=== PATIENT | female | born 1940 | race Caucasian/White ===

== ENCOUNTER 2017-04-13 09:57 | Day surgery (SDC) | payer MEDICARE, SELFPAY ==
[2017-04-13 10:09] VITALS: BP 149/88; BP 153/71; BP 186/76; PULSE 74; PULSE 84; RESP 18; RESP 20; TEMP 36.4; O2SAT 95
--- NOTE | 2017-04-13 10:36 | HMH.PMPROC ---
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 She had a previous lumbar epidural steroid injection in February. She had 75% relief in her pain symptoms. Her pain is started to return. We will do repeat lumbar epidural steroid injection today. Procedure Details:: Informed consent was obtained and the risk and benefits of the procedure was explained to the patient. The patient was taken to the procedure room. She was placed prone on the procedure table. She was prepped and draped in sterile fashion. C-arm fluoroscopy was used to view the lumbar spine. Skin and subcutaneous tissues were anesthetized using lidocaine. I placed an 18-gauge epidural needle and advanced into the L5-S1 interspace using fluoroscopic guidance and [id number] to air. After confirmation of needle placement in the epidural space with dye I injected 2 mL of lidocaine 1.5% with Depo-Medrol 80 mg. Patient tolerated the procedure well with no complications. Plan and Disposition:: We will follow-up with her in 2 weeks. We will reevaluate her symptoms at that time.
--- NOTE | 2017-04-13 10:40 | P.PCN_ITS ---
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 She had a previous lumbar epidural steroid injection in February. She had 75% relief in her pain symptoms. Her pain is started to return. We will do repeat lumbar epidural steroid injection today. Procedure Details:: Informed consent was obtained and the risk and benefits of the procedure was explained to the patient. The patient was taken to the procedure room. She was placed prone on the procedure table. She was prepped and draped in sterile fashion. C-arm fluoroscopy was used to view the lumbar spine. Skin and subcutaneous tissues were anesthetized using lidocaine. I placed an 18-gauge epidural needle and advanced into the L5-S1 interspace using fluoroscopic guidance and [id number] to air. After confirmation of needle placement in the epidural space with dye I injected 2 mL of lidocaine 1.5% with Depo- Medrol 80 mg. Patient tolerated the procedure well with no complications. Plan and Disposition:: We will follow-up with her in 2 weeks. We will reevaluate her symptoms at that time.
[2017-04-13 11:51] VITALS: BP 150/81; PULSE 76; RESP 18; O2SAT 98
== END 2017-04-13 11:45 | disposition home or self-care (01) ==
LOC: SC.PAINP 10:00
PROVIDERS: Family Provider Internal Medicine; PCP Internal Medicine; Visit Provider Anesthesiology
DX: M51.16 Intervertebral disc disorders with radiculopathy, lumbar region (principal)
CPT/HCPCS: 62322; J1040; Q9966

== ENCOUNTER → 2017-05-29 14:33 | Outpatient (POV) | payer MEDICARE, SELFPAY ==
[2017-05-29 15:15] VITALS: BP 174/63; PULSE 80; RESP 18; TEMP 36.6; O2SAT 96; BMI 31.5
--- NOTE | 2017-05-29 15:46 | HMH.PAINSOAP ---
[facility] Pain Management SOAP Note Subjective:: Patient a pleasant 77-year-old white female who presents today after lumbar epidural steroid injection. Patient states she has had 80% relief since the injection 2 months ago. Patient is taking Aleve once in a while to help with some inflammation. Patient is trying to be more active and functional. Patient states that when she does have pain it is dull and achy and radiates bilaterally to both hips and legs. patient has had a previous epidural with good relief as well. We discussed moving on for a third epidural or if she wanted to wait. She states she would like to wait for a little while given the efficacy of this current injection. Patient has done physical therapy in the past. We discussed home stretching regimen. ROS General: no recent weight change, no fever, no sleep disturbances Respiratory: no cough, no shortness of air, no recurring pulmonary infections Cardiovascular/Peripheral Vascular: No chest pain, No palpitations, no edema, no shortness of breath. Gastrointestinal: no incontinence, normal bowel movements reported Genitourinary: no incontinence Musculoskeletal: Low back pain Psychiatric: normal mood/ affect Neurological: Denies weakness in her extremities, [denies balance issues] Objective:: Physical Exam General: Alert and oriented x3, no acute distress, pleasant and cooperative, [on room air] Lungs: Resps E/U, Symmetrical chest expansion, Musculoskeletal: Flexion and extension of lumbar spine somewhat guarded secondary to pain, deep tendon reflexes normal, strength in upper and lower extremities [5/5], normal gait noted Neurological: speech clear, prehemmer equal, no gross sensory deficits Assessment:: Degenerative disc disease of the lumbar spine with lumbar radiculopathy. Plan:: We will plan on a third lumbar epidural steroid injection with the patient's pain begins to return. Patient has been instructed to call the office when she is beginning to feel the pain returned. We discussed home stretching regimen and remaining active. She will call the office when she needs this. This note was dictated using voice recognition software and may contain omissions or errors
--- NOTE | 2017-05-29 15:50 | P.CONS_ITS ---
[facility] Pain Management SOAP Note Subjective:: Patient a pleasant 77-year-old white female who presents today after lumbar epidural steroid injection. Patient states she has had 80% relief since the injection 2 months ago. Patient is taking Aleve once in a while to help with some inflammation. Patient is trying to be more active and functional. Patient states that when she does have pain it is dull and achy and radiates bilaterally to both hips and legs. patient has had a previous epidural with good relief as well. We discussed moving on for a third epidural or if she wanted to wait. She states she would like to wait for a little while given the efficacy of this current injection. Patient has done physical therapy in the past. We discussed home stretching regimen. ROS General: no recent weight change, no fever, no sleep disturbances Respiratory: no cough, no shortness of air, no recurring pulmonary infections Cardiovascular/Peripheral Vascular: No chest pain, No palpitations, no edema, no shortness of breath. Gastrointestinal: no incontinence, normal bowel movements reported Genitourinary: no incontinence Musculoskeletal: Low back pain Psychiatric: normal mood/ affect Neurological: Denies weakness in her extremities, [denies balance issues] Objective:: Physical Exam General: Alert and oriented x3, no acute distress, pleasant and cooperative, [ on room air] Lungs: Resps E/U, Symmetrical chest expansion, Musculoskeletal: Flexion and extension of lumbar spine somewhat guarded secondary to pain, deep tendon reflexes normal, strength in upper and lower extremities [5/5], normal gait noted Neurological: speech clear, air conditioning specialist equal, no gross sensory deficits Assessment:: Degenerative disc disease of the lumbar spine with lumbar radiculopathy. Plan:: We will plan on a third lumbar epidural steroid injection with the patient's pain begins to return. Patient has been instructed to call the office when she is beginning to feel the pain returned. We discussed home stretching regimen and remaining active. She will call the office when she needs this. This note was dictated using voice recognition software and may contain omissions or errors
== END ==
PROVIDERS: Family Provider Internal Medicine; PCP Internal Medicine; Visit Provider Clinical Nurse Specialist Family Health
DX: M54.16 Radiculopathy, lumbar region (principal)
CPT/HCPCS: 99212

== ENCOUNTER → 2017-06-25 15:15 | Outpatient (CLI) | payer MEDICARE, SELFPAY ==
--- NOTE | 2017-06-25 15:19 | XR_ITS ---
XR chest 2V COMPARISON: None HISTORY: Shortness of breath TECHNIQUE: PA and lateral chest FINDINGS: The lung hinton are well expanded and appear clear of infiltrate. The cardiac silhouette and vascularity are normal and is no pleural fluid. There are mild degenerative changes mid thoracic spine. IMPRESSION: Essentially negative chest
== END ==
PROVIDERS: PCP Internal Medicine; Visit Provider Internal Medicine
DX: R06.02 Shortness of breath (principal)
CPT/HCPCS: 71046; 93005

== ENCOUNTER → 2017-07-02 09:52 | Outpatient (CLI) | payer MEDICARE, SELFPAY ==
--- NOTE | 2017-07-02 10:49 | CA_ITS ---
PROCEDURE: 2-D M-mode and color Doppler study INDICATIONS FOR THE TEST: Chest pain COPD Heart Murmur Tobacco Smoking Palpitations Fatigue Syncope EdemaX HypertensionXDiabetes Mellitus Rheumatic Fever SOB DOEXObesityXHyperlipidemia Family History HD Additional History PATIENT INFORMATION HEIGHT: 60 WEIGHT:170 GENDER: Female B/P:140/70 2-D/M-MODE INTERPRETATION: 2-D MEASUREMENTS OBSERVED VALUES IN CMS Right Ventricular Dimension (RVDd) 2.2 Interventricular Septum (Thickness)(IVsd) 1.3 Left Ventricular Internal Dimensions(LVIDd) 4.1 Left Ventricular Posterior Wall (Thickness)(LVPWd) 1.3 Aortic Root 2.8 Aortic Cusp Separation 1.8 Left Atrial Dimensions (LAD) 4.1 2D 1. Left atrium is mildly enlarged, left ventricle is normal size, there is mild concentric left ventricular hypertrophy, visually estimated ejection fraction 55% with no obvious regional wall motion abnormality. 2. The right atrium and right ventricle are normal size and contractility. 3. The aortic valve is minimally thickened and fibrosed. 4. The mitral and tricuspid valve leaflets are minimally thickened. 5. The pulmonic valve is poorly visualized. 6. No significant pericardial effusion noted. DOPPLER INTERROGATION: Doppler interrogation of the aortic, mitral and tricuspid valvular presence of trace aortic, mild mitral and tricuspid regurgitation, calculated right ventricular systolic pressure study millimeters segment consistent with mild pulmonary hypertension, grade 1 diastolic dysfunction seen without tissue Doppler evidence of raised left atrial pressure. CONCLUSION: 1. Mildly enlarged left atrium, normal left ventricular size, mild concentric left ventricular hypertrophy, visually estimated ejection fraction 55% with no obvious regional wall motion abnormality. Grade 1 diastolic dysfunction seen without tissue Doppler evidence of raised left atrial pressure. 2. Mild mitral and tricuspid regurgitation. Calculated right ventricular systolic pressure is 38 mmHg consistent with mild pulmonary hypertension. 3. No significant pericardial effusion noted.
[2017-07-02 12:25] VITALS: PULSE 64; PULSE 67
== END ==
PROVIDERS: Family Provider Internal Medicine; PCP Internal Medicine; Visit Provider Internal Medicine
DX: R06.02 Shortness of breath (principal); I10 Essential (primary) hypertension
CPT/HCPCS: 93306; 94060; 94640

== ENCOUNTER → 2020-04-22 08:51 | Outpatient (CLI) | payer MEDICARE, SELFPAY ==
--- NOTE | 2020-04-22 08:56 | FL_ITS ---
PROCEDURE: FL UPPER GI ESOPHAGUS W/AIR CLINICAL INDICATION: Dysphagia and abdominal pain. COMPARISON: No exams were available for comparison TECHNIQUE: FLUOROSCOPY TIME : 2 minutes and 59 seconds FINDINGS: There are mild tertiary contractions of the esophagus.. No evidence of hiatal hernia or annular constricting lesion. The stomach and duodenum have an unremarkable appearance. No ulcer or mass is apparent. IMPRESSION: 1. Mild esophageal dysmotility 2. Otherwise negative barium swallow and upper Dictated by: Albert Pang MD 04/22/2020 16:56 Albert Pang MD in [place] 04/22/2020 16:56
== END ==
PROVIDERS: PCP Internal Medicine; Visit Provider Internal Medicine
DX: R13.10 Dysphagia, unspecified (principal); R09.89 Other specified symptoms and signs involving the circulatory and respiratory systems; R49.0 Dysphonia; R10.13 Epigastric pain
CPT/HCPCS: 74221; 74246

== ENCOUNTER → 2020-06-01 15:05 | Outpatient (CLI) | payer MEDICARE, SELFPAY ==
--- NOTE | 2020-06-01 15:12 | XR_ITS ---
PROCEDURE: XR LUMBAR SPINE MIN 4V CLINICAL INDICATION: LOW BACK PAIN COMPARISON: No exams were available for comparison FINDINGS: There is mild lumbar scoliosis convex right. There are facet arthritic changes from L3-S1. There is 7 mm anterolisthesis of L3 on L4 with multilevel degenerative disc disease from L1-S1 which is most severe at L3-L4 and L4-S1. There are only 4 lumbar segments. IMPRESSION: Degenerative changes of the lumbar spine as described. Dictated by: Albert Pang MD 06/01/2020 16:03 Albert Pang MD in OV 06/01/2020 16:03
== END ==
PROVIDERS: PCP Internal Medicine; Visit Provider Internal Medicine
DX: M54.5 Low back pain (principal)
CPT/HCPCS: 72110

== ENCOUNTER → 2021-05-17 17:06 | Outpatient (CLI) | payer MEDICARE, SELFPAY ==
[2021-05-17 22:19] LABS: Basophils # 0.1 K/mm3 (0-0.2); Basophils % 1.2 % (0.1-2.0); Eosinophils # 0.8 K/mm3 (0.0-0.4); Eosinophils % 7.9 % (0.1-12.0); Hematocrit 39.9 % (37.0-47.0); Hemoglobin 12.9 g/dL (12.2-16.2); Lymphocytes # 1.6 K/mm3 (0.7-4.5); Lymphocytes % 14.8 % (10-50); Mean Corpuscular HGB Conc 32.3 g/dL (31.8-35.4); Mean Corpuscular Hemoglobin 31.7 pg (27.0-31.2); Mean Corpuscular Volume 98.2 fl (81-99); Mean Platelet Volume 11.6 fl (7.4-10.4); Monocytes # 0.8 K/mm3 (0.1-1.0); Monocytes % 7.1 % (1.7-9.3); Neutrophils # 7.3 K/mm3 (1.8-7.8); Platelet Count 255 K/mm3 (142-424); Red Blood Count 4.06 M/mm3 (4.20-5.40); Red Cell Distribution Width 13.2 % (11.5-17.5); White Blood Count 10.6 K/mm3 (4.8-10.8)
[2021-05-17 22:41] LABS: Alanine Aminotransferase 15 U/L (12-78); Albumin Level 4.3 g/dl (3.5-5.0); Albumin/Globulin Ratio 1.3 (1.1-1.8); Alkaline Phosphatase 97 U/L (38-126); Anion Gap 15.3 mEq/L (5-15); Aspartate Amino Transferase 29 U/L (14-36); Bilirubin,Total 0.5 mg/dl (0.2-1.3); Blood Urea Nitrogen 34 mg/dl (7-17); Calcium 9.2 mg/dl (8.4-10.2); Carbon Dioxide 29 mmol/L (22.0-30.0); Chloride 99 mmol/L (98-107); Chol/HDL Ratio 6.2 (1-3.5); Cholesterol 261 mg/dl (140-200); Estimated Glomerular Filt Rate 40 ml/min (>60); GFR (African American) 48 ML/MIN (>60); Globulin 3.2 g/dL (1.3-3.2); Glucose 88 mg/dl (74-100); HDL Cholesterol 42 mg/dl (40-60); Potassium 4.3 mmoL/L (3.5-5.1); Sodium 139 mmol/L (136-145); Total Protein,Serum 7.5 g/dl (6.3-8.2); Triglycerides 183 mg/dl (30-150); VLDL Cholesterol 37 mg/dL (0-40)
[2021-05-17 22:51] LABS: Direct LDL Cholesterol 180.29 mg/dL (100-129)
== END ==
PROVIDERS: Visit Provider Internal Medicine
DX: I10 Essential (primary) hypertension (principal); E78.5 Hyperlipidemia, unspecified
CPT/HCPCS: 80053; 80061; 84443; 85025

== ENCOUNTER → 2021-11-01 15:25 | Outpatient (CLI) | payer MEDICARE, SELFPAY ==
--- NOTE | 2021-11-01 15:32 | ECG_ITS ---
APPROVED REPORT Exam: Resting ECG HR:80 bpm ECG Measurements Heart Rate 80 AXES PA 146 P 72 QRSd 109 QRS 6 QT 386 T 73 QTc 422 Conclusion SINUS RHYTHM WITH OCCASIONAL VENTRICULAR PREMATURE COMPLEXES LOW QRS VOLTAGE IN PRECORDIAL LEADS [QRS DEFLECTION < 1.0 mV IN CHEST LEADS] BORDERLINE ECG UNCONFIRMED REPORT Electronically signed by : Abundio Spear MD 11/01/2021 21:08:52
[2021-11-01 20:55] LABS: Basophils # 0.1 K/mm3 (0-0.2); Basophils % 0.7 % (0.1-2.0); Eosinophils # 0.2 K/mm3 (0.0-0.4); Eosinophils % 1.3 % (0.1-12.0); Hematocrit 37.8 % (37.0-47.0); Lymphocytes # 2.2 K/mm3 (0.7-4.5); Lymphocytes % 13.9 % (10-50); Mean Corpuscular HGB Conc 34.4 g/dL (31.8-35.4); Mean Corpuscular Hemoglobin 31.7 pg (27.0-31.2); Mean Corpuscular Volume 92.2 fl (81-99); Mean Platelet Volume 10.8 fl (7.4-10.4); Monocytes # 0.9 K/mm3 (0.1-1.0); Neutrophils # 12.1 K/mm3 (1.8-7.8); Platelet Count 298 K/mm3 (142-424); Red Blood Count 4.09 M/mm3 (4.20-5.40); Red Cell Distribution Width 12.8 % (11.5-17.5); White Blood Count 15.4 K/mm3 (4.8-10.8)
[2021-11-01 21:05] LABS: MANUAL DIFFERENTIAL MANUAL DIFFERENTIAL (MANUAL DIFF)
[2021-11-01 21:34] LABS: Alanine Aminotransferase 19 U/L (12-78); Albumin Level 3.9 g/dl (3.5-5.0); Albumin/Globulin Ratio 1.3 (1.1-1.8); Alkaline Phosphatase 148 U/L (38-126); Anion Gap 13.8 mEq/L (5-15); Aspartate Amino Transferase 27 U/L (14-36); Bilirubin,Total 0.2 mg/dl (0.2-1.3); Blood Urea Nitrogen 27 mg/dl (7-17); Calcium 9.1 mg/dl (8.4-10.2); Carbon Dioxide 28 mmol/L (22.0-30.0); Chloride 100 mmol/L (98-107); Chol/HDL Ratio 4.1 (1-3.5); Cholesterol 191 mg/dl (140-200); Estimated Glomerular Filt Rate 43 ml/min (>60); GFR (African American) 52 ML/MIN (>60); Glucose 112 mg/dl (74-100); HDL Cholesterol 47 mg/dl (40-60); Potassium 3.8 mmoL/L (3.5-5.1); Sodium 138 mmol/L (136-145); Total Protein,Serum 6.9 g/dl (6.3-8.2); Triglycerides 160 mg/dl (30-150); VLDL Cholesterol 32 mg/dL (0-40)
[2021-11-01 21:45] LABS: Direct LDL Cholesterol 94.62 mg/dL (100-129)
[2021-11-01 22:04] LABS: Thyroid Stimulating Hormone 0.12 uIU/mL (0.465-4.68)
[2021-11-01 22:26] LABS: Lymphocytes % 32 % (10-50); Monocytes % 1 % (2-9); Neutrophils % 67 % (42-76); Platelet Estimate Normal; Total Cells Counted 100
== END ==
PROVIDERS: PCP Internal Medicine; Visit Provider Internal Medicine
DX: R00.2 Palpitations (principal); I10 Essential (primary) hypertension; E03.9 Hypothyroidism, unspecified; R53.83 Other fatigue; M15.0 Primary generalized (osteo)arthritis
CPT/HCPCS: 80053; 80061; 84443; 85007; 85025; 93005; 93225; 93226

== ENCOUNTER → 2021-11-18 12:15 | Outpatient (CLI) | payer MEDICARE, SELFPAY ==
--- NOTE | 2021-11-18 12:52 | CA_ITS ---
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 [employer]: Viridiana Quevedo, RT(R) Ht: 5 ft 1 in Wt: 159lbs BSA: 1.71 BP: 136/72 mmHg Indications: palpitations, PVC's, Abn EKG, CP,HTN, HLD, JOSHI 2D Dimensions LA Volume 32.80 mL LA Volume Index 19.18 mL/m2 (M/F) 16-34 M-Mode Dimensions RVDd 3.18 cm (0.9-2.6) LA Diam 3.49 cm (1.9-4.0) LVDd 5.04 cm (3.5-5.7) Ao Diam 2.17 cm (2.0-3.7) LVDs 3.72 cm (3.5-5.7) IVSd 0.72 cm (0.6-1.1) PWd 0.80 cm (0.6-1.1) EF (Teich) 51.10% FS 26.20% EDV (Teich) 120.50 mL ESV (Teich) 58.90 mL LV Diastology E Decel Time 183.00 (160-240 msec) E/A Ratio 1.0 MED E' 6.70 (< 7 cm/sec) E'/MED E' Ratio 17.19 (>14) LAT E' 6.90 (<10 cm/sec) E/LAT E' Ratio 16.70 (>14) Mitral Valve MV E Max Tano. 115.00 (40-130 cm/s) MV A Velocity 119.00 (40-130 cm/s) E/A Ratio 0.97 MV Decel. Time 183.00 (160-240 ms) MV PHT 54.00 ms Tricuspid Valve TR P. Velocity 279.00 cm/s RAP Estimate 10.00 mmHg RVSP 41.20 mmHg Left Ventricle Left atrium is mildly enlarged, left ventricle is normal size, mild concentric left ventricular hypertrophy, estimated ejection fraction 55% with no regional wall motion abnormality, grade 1 diastolic dysfunction seen with tissue Doppler evidence of raise left atrial pressure. Right Ventricle Right atrium and right ventricle are mildly enlarged with normal contractility. Aortic Valve Aortic valve is minimally thickened and fibrosed, there is no aortic stenosis or aortic insufficiency. Mitral Valve Mitral valve has mitral calcification which extends to both anterior posterior mitral leaflet, there is no mitral stenosis, there is mild mitral regurgitation. Tricuspid Valve Tricuspid valve grossly normal, there is mild tricuspid regurgitation, calculated right ventricular systolic pressure is 41 mmHg. Pulmonic Valve Pulmonic valve is poorly visualized. Great Vessels Aortic root is normal size. Inferior vena cava is poorly visualized. Pericardium No significant pericardial effusion noted. Conclusion 1. Mild biatrial enlargement, normal left ventricular size, mild concentric left ventricular hypertrophy, estimated ejection fraction 55% with no regional wall motion abnormality, grade 1 diastolic dysfunction seen without tissue Doppler evidence of raise left atrial pressure. 2. Mildly enlarged right ventricle with normal contractility. 3. Mild mitral and tricuspid regurgitation, calculated right ventricular systolic pressure is 41 mmHg. 4. No significant pericardial effusion. 5. Inferior vena cava is poorly visualized. Electronically signed by : Mitch Castro MD 11/18/2021 15:02:48
== END ==
PROVIDERS: PCP Internal Medicine; Visit Provider Internal Medicine
DX: R00.2 Palpitations (principal); I10 Essential (primary) hypertension
CPT/HCPCS: 93306

== ENCOUNTER → 2021-12-14 15:18 | Outpatient (CLI) | payer MEDICARE, SELFPAY ==
--- NOTE | 2021-12-14 15:23 | XR_ITS ---
FINAL REPORT CLINICAL HISTORY: CHEST PAIN,SOB COMPARISON: June 25, 2017 FINDINGS: Two views of the chest were obtained. The heart size and pulmonary vascularity are within normal limits. The mediastinum is normal. No acute pulmonary abnormality is identified. There is no pneumothorax. There are moderate degenerative changes in the thoracic spine. IMPRESSION: No active cardiopulmonary disease. Reviewed, Interpreted and Dictated by Jimmy Mg III, MD Transcribed by Leonarda Macias Authenticated and [facility]
== END ==
PROVIDERS: PCP Internal Medicine; Visit Provider Internal Medicine
DX: R06.02 Shortness of breath (principal); R07.9 Chest pain, unspecified
CPT/HCPCS: 71046

== ENCOUNTER → 2022-02-28 15:04 | Outpatient (CLI) | payer MEDICARE, SELFPAY ==
[2022-02-28 15:34] LABS: Basophils # 0.1 K/mm3 (0-0.2); Basophils % 1.2 % (0.1-2.0); Eosinophils # 0.6 K/mm3 (0.0-0.4); Eosinophils % 6.4 % (0.1-12.0); Hematocrit 40.1 % (37.0-47.0); Hemoglobin 13.1 g/dL (12.2-16.2); Lymphocytes # 1.7 K/mm3 (0.7-4.5); Lymphocytes % 17.3 % (10-50); Mean Corpuscular HGB Conc 32.6 g/dL (31.8-35.4); Mean Corpuscular Hemoglobin 30.7 pg (27.0-31.2); Mean Corpuscular Volume 94.3 fl (81-99); Monocytes # 0.7 K/mm3 (0.1-1.0); Monocytes % 6.7 % (1.7-9.3); Neutrophils # 6.7 K/mm3 (1.8-7.8); Neutrophils % 68.4 % (37.0-80.0); Platelet Count 213 K/mm3 (142-424); Red Blood Count 4.25 M/mm3 (4.20-5.40); White Blood Count 9.8 K/mm3 (4.8-10.8)
[2022-02-28 16:01] LABS: Chloride 97 mmol/L (98-107); Sodium 138 mmol/L (136-145)
[2022-02-28 16:02] LABS: Potassium 3.9 mmoL/L (3.5-5.1)
[2022-02-28 16:04] LABS: Blood Urea Nitrogen 30 mg/dl (7-17); Estimated Glomerular Filt Rate 31 ml/min (>60); GFR (African American) 38 ML/MIN (>60)
[2022-02-28 16:05] LABS: Anion Gap 17.9 mEq/L (5-15); Calcium 9.3 mg/dl (8.4-10.2); Carbon Dioxide 27 mmol/L (22.0-30.0); Glucose 130 mg/dl (74-100)
[2022-02-28 16:35] LABS: Thyroid Stimulating Hormone 2.69 uIU/mL (0.465-4.68)
== END ==
PROVIDERS: PCP Internal Medicine; Visit Provider Internal Medicine
DX: E11.59 Type 2 diabetes mellitus with other circulatory complications (principal); I10 Essential (primary) hypertension; E03.9 Hypothyroidism, unspecified; R79.89 Other specified abnormal findings of blood chemistry
CPT/HCPCS: 80048; 84443; 85025

== ENCOUNTER → 2022-03-29 14:09 | Outpatient (CLI) | payer MEDICARE, SELFPAY ==
--- NOTE | 2022-03-29 14:12 | US_ITS ---
FINAL REPORT TECHNIQUE: Ultrasound images of the kidneys and bladder were obtained. CLINICAL HISTORY: ELEVATED KIDNEY FUNCTION FINDINGS: The right kidney measures 9.7 cm in length. It is normal in echogenicity. There is no hydronephrosis. The left kidney measures 8.5 cm in length. It is normal in echogenicity. There is no hydronephrosis. The spleen is within normal limits. IMPRESSION: No acute process. Reviewed, Interpreted and Dictated by Jimmy Mg III, MD Transcribed by Sofya Denis Authenticated and [facility]
--- NOTE | 2022-03-29 14:12 | US_ITS ---
FINAL REPORT CLINICAL HISTORY: ELEVATED KIDNEY FUNCTION FINDINGS: Limited images of the urinary bladder were obtained. Bladder volume is 49 mL. Postvoid residual is 5 mL. IMPRESSION: No significant postvoid residual. Reviewed, Interpreted and Dictated by Jimmy Mg III, MD Transcribed by Sofya Denis Authenticated and [facility]
== END ==
PROVIDERS: PCP Internal Medicine; Visit Provider Internal Medicine
DX: R94.4 Abnormal results of kidney function studies (principal)
CPT/HCPCS: 76770; 76857

== ENCOUNTER → 2022-04-10 13:45 | Outpatient (CLI) | payer MEDICARE, SELFPAY ==
[2022-04-10 13:53] LABS: Microscopic, Urine URINE MICROSCOPIC (MICROSCOPIC)
[2022-04-10 14:20] LABS: Appearance,Urine CLEAR (Clear); Bilirubin,Urine Negative (Negative); Blood, Urine Negative (Negative); Color,Urine YELLOW (Yellow); Glucose,Urine (UA) Negative (Negative); Ketones,Urine TRACE (Negative); Leukocyte Esterase,Urine TRACE (Negative); Nitrate,Urine Negative (Negative); PH,Urine 6.5 (5.0-8.5); Protein,Urine TRACE (Negative); Specific Gravity, Urine 1.015 (1.005-1.030); Urobilinogen,Urine 0.2 EU/dl (0.2)
[2022-04-10 14:33] LABS: Basophils # 0.1 K/mm3 (0-0.2); Basophils % 0.7 % (0.1-2.0); Eosinophils # 0.5 K/mm3 (0.0-0.4); Eosinophils % 6.5 % (0.1-12.0); Hematocrit 39.9 % (37.0-47.0); Hemoglobin 12.8 g/dL (12.2-16.2); Lymphocytes # 1.7 K/mm3 (0.7-4.5); Lymphocytes % 21.1 % (10-50); Mean Corpuscular HGB Conc 31.9 g/dL (31.8-35.4); Mean Platelet Volume 9.5 fl (7.4-10.4); Monocytes # 0.7 K/mm3 (0.1-1.0); Monocytes % 8.7 % (1.7-9.3); Neutrophils # 5.2 K/mm3 (1.8-7.8); Neutrophils % 62.9 % (37.0-80.0); Platelet Count 207 K/mm3 (142-424); Red Blood Count 4.25 M/mm3 (4.20-5.40); Red Cell Distribution Width 13.4 % (11.5-17.5); White Blood Count 8.2 K/mm3 (4.8-10.8)
[2022-04-10 14:44] LABS: Albumin Level 3.8 g/dl (3.5-5.0); Anion Gap 14.3 mEq/L (5-15); Blood Urea Nitrogen 31 mg/dl (7-17); Calcium 8.4 mg/dl (8.4-10.2); Carbon Dioxide 27 mmol/L (22.0-30.0); Chloride 102 mmol/L (98-107); Estimated Glomerular Filt Rate 27 ml/min (>60); GFR (African American) 33 ML/MIN (>60); Glucose 110 mg/dl (74-100); Phosphorous 3.8 mg/dl (2.5-4.5); Potassium 3.3 mmoL/L (3.5-5.1); Sodium 140 mmol/L (136-145)
[2022-04-10 14:57] LABS: Intact Parathyroid Hormone 144.6 pg/mL (7.5-53.5)
[2022-04-10 14:59] LABS: Creatinine,Urine Random 314 mg/dL (Not Estab.)
[2022-04-10 15:41] LABS: Bacteria,Urine Trace /lpf; WBC,Urine Occasional #/hpf (0-3)
== END ==
PROVIDERS: PCP Internal Medicine; Visit Provider Internal Medicine Nephrology
DX: N18.32 Chronic kidney disease, stage 3b (principal); E55.9 Vitamin D deficiency, unspecified
CPT/HCPCS: 36415; 80069; 81001; 82306; 82570; 83970; 84155; 85025

== ENCOUNTER → 2022-04-13 15:11 | Outpatient (POV) | payer MEDICARE, SELFPAY | PROVIDERS: Visit Provider Internal Medicine Nephrology | DX: Z00.00 Encounter for general adult medical examination without abnormal findings (principal) ==

== ENCOUNTER → 2022-05-08 13:56 | Outpatient (CLI) | payer MEDICARE, SELFPAY ==
[2022-05-08 16:03] LABS: Chloride 108 mmol/L (98-107); Sodium 142 mmol/L (136-145)
[2022-05-08 16:06] LABS: Blood Urea Nitrogen 22 mg/dl (7-17); Estimated Glomerular Filt Rate 43 ml/min (>60); GFR (African American) 52 ML/MIN (>60); Potassium 4.5 mmoL/L (3.5-5.1)
[2022-05-08 16:07] LABS: Anion Gap 9.5 mEq/L (5-15); Calcium 8.5 mg/dl (8.4-10.2); Carbon Dioxide 29 mmol/L (22.0-30.0); Glucose 102 mg/dl (74-100)
== END ==
PROVIDERS: PCP Internal Medicine; Visit Provider Internal Medicine Nephrology
DX: N28.9 Disorder of kidney and ureter, unspecified (principal)
CPT/HCPCS: 36415; 80048

== ENCOUNTER → 2022-05-16 11:22 | Outpatient (CLI) | payer MEDICARE, SELFPAY ==
[2022-05-16 14:11] LABS: Basophils # 0.1 K/mm3 (0-0.2); Basophils % 0.8 % (0.1-2.0); Eosinophils # 0.6 K/mm3 (0.0-0.4); Eosinophils % 6.1 % (0.1-12.0); Hematocrit 36.3 % (37.0-47.0); Hemoglobin 11.8 g/dL (12.2-16.2); Lymphocytes # 2.2 K/mm3 (0.7-4.5); Lymphocytes % 21.6 % (10-50); Mean Corpuscular HGB Conc 32.6 g/dL (31.8-35.4); Mean Corpuscular Hemoglobin 30.5 pg (27.0-31.2); Mean Corpuscular Volume 93.7 fl (81-99); Mean Platelet Volume 11.1 fl (7.4-10.4); Monocytes # 0.8 K/mm3 (0.1-1.0); Monocytes % 7.4 % (1.7-9.3); Neutrophils # 6.7 K/mm3 (1.8-7.8); Neutrophils % 64.2 % (37.0-80.0); Platelet Count 226 K/mm3 (142-424); Red Blood Count 3.88 M/mm3 (4.20-5.40); Red Cell Distribution Width 13.3 % (11.5-17.5); White Blood Count 10.4 K/mm3 (4.8-10.8)
[2022-05-16 17:04] LABS: Alanine Aminotransferase 14 U/L (12-78); Albumin Level 3.8 g/dl (3.5-5.0); Albumin/Globulin Ratio 1.2 (1.1-1.8); Alkaline Phosphatase 98 U/L (38-126); Anion Gap 10.7 mEq/L (5-15); Aspartate Amino Transferase 24 U/L (14-36); Bilirubin,Total 0.5 mg/dl (0.2-1.3); Blood Urea Nitrogen 21 mg/dl (7-17); Calcium 8.4 mg/dl (8.4-10.2); Carbon Dioxide 29 mmol/L (22.0-30.0); Chloride 106 mmol/L (98-107); Chol/HDL Ratio 6.3 (1-3.5); Cholesterol 209 mg/dl (140-200); Estimated Glomerular Filt Rate 43 ml/min (>60); GFR (African American) 52 ML/MIN (>60); Globulin 3.1 g/dL (1.3-3.2); Glucose 76 mg/dl (74-100); HDL Cholesterol 33 mg/dl (40-60); Potassium 3.7 mmoL/L (3.5-5.1); Sodium 142 mmol/L (136-145); Total Protein,Serum 6.9 g/dl (6.3-8.2); Triglycerides 207 mg/dl (30-150); VLDL Cholesterol 41 mg/dL (0-40)
[2022-05-16 17:15] LABS: Direct LDL Cholesterol 127.88 mg/dL (100-129)
[2022-05-16 17:36] LABS: Thyroid Stimulating Hormone 5.38 uIU/mL (0.465-4.68)
== END ==
PROVIDERS: PCP Internal Medicine; Visit Provider Internal Medicine
DX: I10 Essential (primary) hypertension (principal); E03.9 Hypothyroidism, unspecified; E78.5 Hyperlipidemia, unspecified; F41.9 Anxiety disorder, unspecified; M15.0 Primary generalized (osteo)arthritis
CPT/HCPCS: 80053; 80061; 84443; 85025

== ENCOUNTER → 2022-07-10 13:58 | Outpatient (CLI) | payer MEDICARE, SELFPAY ==
[2022-07-10 14:05] LABS: Microscopic, Urine URINE MICROSCOPIC (MICROSCOPIC)
[2022-07-10 14:58] LABS: Hematocrit 38.9 % (37.0-47.0); Hemoglobin 12.3 g/dL (12.2-16.2); Mean Corpuscular HGB Conc 31.7 g/dL (31.8-35.4); Mean Corpuscular Hemoglobin 30.2 pg (27.0-31.2); Mean Corpuscular Volume 95.3 fl (81-99); Platelet Count 199 K/mm3 (142-424); Red Blood Count 4.08 M/mm3 (4.20-5.40); White Blood Count 9.5 K/mm3 (4.8-10.8)
[2022-07-10 15:21] LABS: Albumin Level 3.7 g/dl (3.5-5.0); Anion Gap 12.2 mEq/L (5-15); Blood Urea Nitrogen 20 mg/dl (7-17); Calcium 8.6 mg/dl (8.4-10.2); Carbon Dioxide 25 mmol/L (22.0-30.0); Chloride 105 mmol/L (98-107); Estimated Glomerular Filt Rate 48 ml/min (>60); GFR (African American) 58 ML/MIN (>60); Glucose 97 mg/dl (74-100); Phosphorous 3.7 mg/dl (2.5-4.5); Potassium 4.2 mmoL/L (3.5-5.1); Sodium 138 mmol/L (136-145)
[2022-07-10 15:39] LABS: Appearance,Urine SL CLOUDY (Clear); Bilirubin,Urine Negative (Negative); Blood, Urine TRACE-I (Negative); Color,Urine YELLOW (Yellow); Glucose,Urine (UA) Negative (Negative); Ketones,Urine Negative (Negative); Leukocyte Esterase,Urine 1+ (Negative); Nitrate,Urine Negative (Negative); Protein,Urine TRACE (Negative); Urobilinogen,Urine 0.2 EU/dl (0.2)
[2022-07-10 16:30] LABS: Creatinine,Urine Random 216 mg/dL (Not Estab.)
[2022-07-10 17:30] LABS: RBC,Urine Occasional #/hpf (0-3)
[2022-07-10 17:31] LABS: Squamous Epithelial Cell,Urine 20-50 #/hpf (0-5)
== END ==
PROVIDERS: PCP Internal Medicine; Visit Provider Internal Medicine Nephrology
DX: N28.9 Disorder of kidney and ureter, unspecified (principal)
CPT/HCPCS: 36415; 80069; 81001; 82570; 84155; 85014; 85018; 85048; 85049; 87086

== ENCOUNTER → 2022-07-13 14:29 | Outpatient (POV) | payer MEDICARE, SELFPAY | PROVIDERS: Visit Provider Internal Medicine Nephrology | DX: Z00.00 Encounter for general adult medical examination without abnormal findings (principal) ==

== ENCOUNTER → 2022-09-11 13:11 | Outpatient (CLI) | payer MEDICARE, SELFPAY ==
[2022-09-11 14:38] LABS: Alanine Aminotransferase 17 U/L (12-78); Albumin Level 3.7 g/dl (3.5-5.0); Albumin/Globulin Ratio 1.1 (1.1-1.8); Alkaline Phosphatase 121 U/L (38-126); Aspartate Amino Transferase 29 U/L (14-36); Bilirubin,Total 0.6 mg/dl (0.2-1.3); Blood Urea Nitrogen 19 mg/dl (7-17); Calcium 8.8 mg/dl (8.4-10.2); Carbon Dioxide 28 mmol/L (22.0-30.0); Chloride 101 mmol/L (98-107); Chol/HDL Ratio 6.3 (1-3.5); Cholesterol 228 mg/dl (140-200); Estimated Glomerular Filt Rate 53 ml/min (>60); GFR (African American) 65 ML/MIN (>60); Globulin 3.4 g/dL (1.3-3.2); Glucose 87 mg/dl (74-100); HDL Cholesterol 36 mg/dl (40-60); Sodium 142 mmol/L (136-145); Total Protein,Serum 7.1 g/dl (6.3-8.2); Triglycerides 195 mg/dl (30-150); VLDL Cholesterol 39 mg/dL (0-40)
[2022-09-11 14:50] LABS: Direct LDL Cholesterol 132.04 mg/dL (100-129)
[2022-09-11 15:04] LABS: Basophils # 0.1 K/mm3 (0-0.2); Basophils % 0.7 % (0.1-2.0); Eosinophils # 1.2 K/mm3 (0.0-0.4); Eosinophils % 13.5 % (0.1-12.0); Hematocrit 33.4 % (37.0-47.0); Hemoglobin 10.8 g/dL (12.2-16.2); Lymphocytes # 1.6 K/mm3 (0.7-4.5); Lymphocytes % 18.1 % (10-50); Mean Corpuscular HGB Conc 32.3 g/dL (31.8-35.4); Mean Platelet Volume 10.4 fl (7.4-10.4); Monocytes # 0.6 K/mm3 (0.1-1.0); Monocytes % 6.6 % (1.7-9.3); Neutrophils # 5.3 K/mm3 (1.8-7.8); Neutrophils % 61.2 % (37.0-80.0); Platelet Count 216 K/mm3 (142-424); Red Blood Count 3.59 M/mm3 (4.20-5.40); Red Cell Distribution Width 13.2 % (11.5-17.5); White Blood Count 8.7 K/mm3 (4.8-10.8)
[2022-09-15 17:20] LABS: Vitamin B12 > 1000 pg/mL (239-931)
[2022-09-15 17:21] LABS: Iron 80 ug/dL (37-170)
[2022-09-15 17:30] LABS: Total Iron Binding Capacity 244 ug/dL (265-497)
== END ==
PROVIDERS: PCP Internal Medicine; Visit Provider Internal Medicine
DX: I10 Essential (primary) hypertension (principal); E03.9 Hypothyroidism, unspecified; E78.5 Hyperlipidemia, unspecified; K21.9 Gastro-esophageal reflux disease without esophagitis; M15.0 Primary generalized (osteo)arthritis; D64.9 Anemia, unspecified
CPT/HCPCS: 80053; 80061; 82607; 83540; 83550; 84443; 85025

== ENCOUNTER → 2022-11-13 17:01 | Outpatient (CLI) | payer MEDICARE, SELFPAY ==
[2022-11-13 18:25] LABS: Thyroid Stimulating Hormone 5.37 uIU/mL (0.465-4.68)
== END ==
PROVIDERS: PCP Internal Medicine; Visit Provider Internal Medicine
DX: E03.9 Hypothyroidism, unspecified (principal)
CPT/HCPCS: 84443

== ENCOUNTER 2023-05-15 14:37 | Outpatient (CLI) | payer MEDICARE, SELFPAY ==
[2023-05-15 16:40] LABS: Alanine Aminotransferase 18 U/L (12-78); Albumin Level 4.1 g/dl (3.5-5.0); Albumin/Globulin Ratio 1.2 (1.1-1.8); Alkaline Phosphatase 100 U/L (38-126); Anion Gap 12.7 mEq/L (5-15); Aspartate Amino Transferase 29 U/L (14-36); Bilirubin,Total 0.5 mg/dl (0.2-1.3); Blood Urea Nitrogen 27 mg/dl (7-17); Calcium 9.2 mg/dl (8.4-10.2); Carbon Dioxide 27 mmol/L (22.0-30.0); Chloride 104 mmol/L (98-107); Cholesterol 279 mg/dl (140-200); Estimated Glomerular Filt Rate 48 ml/min (>60); GFR (African American) 58 ML/MIN (>60); Globulin 3.3 g/dL (1.3-3.2); Glucose 78 mg/dl (74-100); HDL Cholesterol 40 mg/dl (40-60); Potassium 4.7 mmoL/L (3.5-5.1); Sodium 139 mmol/L (136-145); Total Protein,Serum 7.4 g/dl (6.3-8.2); Triglycerides 193 mg/dl (30-150); VLDL Cholesterol 39 mg/dL (0-40)
[2023-05-15 16:51] LABS: Direct LDL Cholesterol 169.28 mg/dL (100-129)
[2023-05-15 17:10] LABS: Thyroid Stimulating Hormone 7.93 uIU/mL (0.465-4.68)
== END 2023-05-15 23:59 ==
LOC: LAB.DROPOF 14:38
PROVIDERS: PCP Internal Medicine; Visit Provider Internal Medicine
DX: E03.9 Hypothyroidism, unspecified (principal); I10 Essential (primary) hypertension; E78.5 Hyperlipidemia, unspecified; F33.0 Major depressive disorder, recurrent, mild; M15.0 Primary generalized (osteo)arthritis
CPT/HCPCS: 80053; 80061; 84443

== ENCOUNTER 2023-06-18 17:01 | Outpatient (CLI) | payer MEDICARE, SELFPAY ==
[2023-06-18 17:19] LABS: Basophils # 0.1 K/mm3 (0-0.2); Basophils % 0.9 % (0.1-2.0); Eosinophils # 0.4 K/mm3 (0.0-0.4); Eosinophils % 3.6 % (0.1-12.0); Hemoglobin 12.8 g/dL (12.2-16.2); Lymphocytes # 2.5 K/mm3 (0.7-4.5); Lymphocytes % 21.7 % (10-50); Mean Corpuscular HGB Conc 32.8 g/dL (31.8-35.4); Mean Corpuscular Hemoglobin 32.1 pg (27.0-31.2); Mean Corpuscular Volume 97.8 fl (81-99); Mean Platelet Volume 10.8 fl (7.4-10.4); Monocytes # 0.9 K/mm3 (0.1-1.0); Monocytes % 8.1 % (1.7-9.3); Neutrophils # 7.5 K/mm3 (1.8-7.8); Neutrophils % 65.7 % (37.0-80.0); Platelet Count 204 K/mm3 (142-424); Red Blood Count 3.99 M/mm3 (4.20-5.40); Red Cell Distribution Width 13.3 % (11.5-17.5); White Blood Count 11.4 K/mm3 (4.8-10.8)
== END 2023-06-18 23:59 ==
LOC: LAB.DROPOF 17:02
PROVIDERS: PCP Internal Medicine; Visit Provider Internal Medicine
DX: N19 Unspecified kidney failure (principal); M15.0 Primary generalized (osteo)arthritis
CPT/HCPCS: 85025

== ENCOUNTER 2023-07-04 14:30 | Outpatient (CLI) | payer MEDICARE, SELFPAY ==
[2023-07-04 14:45] LABS: Microscopic, Urine URINE MICROSCOPIC (MICROSCOPIC)
[2023-07-04 14:59] LABS: Hematocrit 38.6 % (37.0-47.0); Hemoglobin 12.4 g/dL (12.2-16.2); Mean Corpuscular HGB Conc 32.1 g/dL (31.8-35.4); Mean Corpuscular Hemoglobin 31.9 pg (27.0-31.2); Mean Corpuscular Volume 99.5 fl (81-99); Platelet Count 191 K/mm3 (142-424); Red Blood Count 3.88 M/mm3 (4.20-5.40)
[2023-07-04 15:09] LABS: Appearance,Urine SL CLOUDY (Clear); Blood, Urine Negative (Negative); Color,Urine YELLOW (Yellow); Glucose,Urine (UA) Negative (Negative); Ketones,Urine TRACE (Negative); Leukocyte Esterase,Urine 2+ (Negative); Nitrate,Urine Negative (Negative); Protein,Urine Negative (Negative); Specific Gravity, Urine 1.025 (1.005-1.030); Urobilinogen,Urine 0.2 EU/dl (0.2)
[2023-07-04 15:38] LABS: Bilirubin,Urine 1+ (Negative)
[2023-07-04 16:33] LABS: Albumin Level 3.7 g/dl (3.5-5.0); Blood Urea Nitrogen 26 mg/dl (7-17); Calcium 8.9 mg/dl (8.4-10.2); Carbon Dioxide 27 mmol/L (22.0-30.0); Chloride 106 mmol/L (98-107); Estimated Glomerular Filt Rate 43 ml/min (>60); GFR (African American) 52 ML/MIN (>60); Glucose 126 mg/dl (74-100); Phosphorous 3.5 mg/dl (2.5-4.5); Sodium 142 mmol/L (136-145)
[2023-07-04 16:45] LABS: Intact Parathyroid Hormone 175.9 pg/mL (7.5-53.5)
[2023-07-04 16:48] LABS: Creatinine,Urine Random 276 mg/dL (Not Estab.)
[2023-07-04 16:50] LABS: Bacteria,Urine Trace /lpf; RBC,Urine Occasional #/hpf (0-3)
[2023-07-04 16:51] LABS: 25-OH Vitamin D, Total 56.2 ng/mL (30-100)
== END 2023-07-04 23:59 ==
LOC: LAB 14:31
PROVIDERS: PCP Internal Medicine; Visit Provider Internal Medicine Nephrology
DX: N18.31 Chronic kidney disease, stage 3a (principal); N39.0 Urinary tract infection, site not specified; B96.89 Other specified bacterial agents as the cause of diseases classified elsewhere; Z79.899 Other long term (current) drug therapy
CPT/HCPCS: 36415; 80069; 81001; 82306; 82570; 83970; 84156; 85014; 85018; 85048; 85049; 87086

== ENCOUNTER 2023-07-09 13:07 | Outpatient (POV) | payer MEDICARE, SELFPAY | END 2023-07-09 23:59 | disposition home or self-care (01) | LOC: SC 13:08 | PROVIDERS: Visit Provider Internal Medicine Nephrology | DX: Z00.00 Encounter for general adult medical examination without abnormal findings (principal) ==

== ENCOUNTER 2023-11-13 16:57 | Outpatient (CLI) | payer MEDICARE, SELFPAY ==
[2023-11-13 17:41] LABS: Alanine Aminotransferase 16 U/L (12-78); Albumin Level 3.7 g/dl (3.5-5.0); Albumin/Globulin Ratio 1.2 (1.1-1.8); Alkaline Phosphatase 101 U/L (38-126); Anion Gap 12.1 mEq/L (5-15); Aspartate Amino Transferase 28 U/L (14-36); Bilirubin,Total 0.5 mg/dl (0.2-1.3); Blood Urea Nitrogen 25 mg/dl (7-17); Calcium 8.9 mg/dl (8.4-10.2); Carbon Dioxide 27 mmol/L (22.0-30.0); Chloride 105 mmol/L (98-107); Chol/HDL Ratio 4.4 (1-3.5); Cholesterol 199 mg/dl (140-200); Estimated Glomerular Filt Rate 48 ml/min (>60); GFR (African American) 58 ML/MIN (>60); Globulin 3.2 g/dL (1.3-3.2); Glucose 67 mg/dl (74-100); HDL Cholesterol 45 mg/dl (40-60); Potassium 4.1 mmoL/L (3.5-5.1); Sodium 140 mmol/L (136-145); Total Protein,Serum 6.9 g/dl (6.3-8.2); Triglycerides 160 mg/dl (30-150); VLDL Cholesterol 32 mg/dL (0-40)
[2023-11-13 17:52] LABS: Direct LDL Cholesterol 104.37 mg/dL (100-129)
[2023-11-13 18:11] LABS: Thyroid Stimulating Hormone 0.26 uIU/mL (0.465-4.68)
== END 2023-11-13 23:59 | disposition home or self-care (01) ==
LOC: LAB.DROPOF 16:57
PROVIDERS: PCP Internal Medicine; Visit Provider Internal Medicine
DX: I12.9 Hypertensive chronic kidney disease with stage 1 through stage 4 chronic kidney disease, or unspecified chronic kidney disease (principal); N18.9 Chronic kidney disease, unspecified; E03.9 Hypothyroidism, unspecified; E78.5 Hyperlipidemia, unspecified
CPT/HCPCS: 80053; 80061; 84443

== ENCOUNTER 2024-05-13 14:31 | Outpatient (CLI) | payer MEDICARE, SELFPAY ==
[2024-05-13 14:27] LABS: Basophils # 0.1 K/mm3 (0-0.2); Basophils % 0.7 % (0.1-2.0); Eosinophils # 0.4 K/mm3 (0.0-0.4); Eosinophils % 4.6 % (0.1-12.0); Hematocrit 37.3 % (37.0-47.0); Hemoglobin 12.4 g/dL (12.2-16.2); Lymphocytes # 1.8 K/mm3 (0.7-4.5); Lymphocytes % 19.2 % (10-50); Mean Corpuscular HGB Conc 33.2 g/dL (31.8-35.4); Mean Corpuscular Hemoglobin 31.5 pg (27.0-31.2); Mean Corpuscular Volume 94.7 fl (81-99); Mean Platelet Volume 11.9 fl (7.4-10.4); Monocytes # 0.9 K/mm3 (0.1-1.0); Monocytes % 9.3 % (1.7-9.3); Neutrophils # 6.3 K/mm3 (1.8-7.8); Platelet Count 200 K/mm3 (142-424); Red Blood Count 3.94 M/mm3 (4.20-5.40); White Blood Count 9.5 K/mm3 (4.8-10.8)
[2024-05-13 15:17] LABS: Alanine Aminotransferase 17 U/L (12-78); Albumin/Globulin Ratio 1.5 (1.1-1.8); Alkaline Phosphatase 99 U/L (38-126); Anion Gap 13.2 mEq/L (5-15); Aspartate Amino Transferase 28 U/L (14-36); Bilirubin,Total 0.4 mg/dl (0.2-1.3); Blood Urea Nitrogen 20 mg/dl (7-17); Carbon Dioxide 26 mmol/L (22.0-30.0); Chloride 106 mmol/L (98-107); Chol/HDL Ratio 4.8 (1-3.5); Cholesterol 188 mg/dl (140-200); Estimated Glomerular Filt Rate 48 ml/min (>60); GFR (African American) 58 ML/MIN (>60); Globulin 2.7 g/dL (1.3-3.2); Glucose 75 mg/dl (74-100); HDL Cholesterol 39 mg/dl (40-60); Potassium 4.2 mmoL/L (3.5-5.1); Sodium 141 mmol/L (136-145); Total Protein,Serum 6.7 g/dl (6.3-8.2); Triglycerides 185 mg/dl (30-150); VLDL Cholesterol 37 mg/dL (0-40)
[2024-05-13 15:49] LABS: Thyroid Stimulating Hormone 6.34 uIU/mL (0.465-4.68)
== END 2024-05-13 23:59 | disposition home or self-care (01) ==
LOC: LAB.DROPOF 14:31
PROVIDERS: PCP Internal Medicine; Visit Provider Internal Medicine
DX: E78.5 Hyperlipidemia, unspecified (principal); I10 Essential (primary) hypertension; E03.9 Hypothyroidism, unspecified
CPT/HCPCS: 80053; 80061; 84443; 85025

== ENCOUNTER 2024-11-10 10:15 | Outpatient (CLI) | payer MEDICARE, SELFPAY ==
[2024-11-10 15:38] LABS: Alanine Aminotransferase 14 U/L (12-78); Albumin Level 3.9 g/dl (3.5-5.0); Albumin/Globulin Ratio 1.3 (1.1-1.8); Alkaline Phosphatase 117 U/L (38-126); Anion Gap 12.2 mEq/L (5-15); Aspartate Amino Transferase 27 U/L (14-36); Bilirubin,Total 0.5 mg/dl (0.2-1.3); Blood Urea Nitrogen 26 mg/dl (7-17); Calcium 9.3 mg/dl (8.4-10.2); Carbon Dioxide 26 mmol/L (22.0-30.0); Chloride 106 mmol/L (98-107); Cholesterol 193 mg/dl (140-200); Creatinine,Serum 1.10 mg/dl (0.52-1.04); Estimated Glomerular Filt Rate 48 ml/min (>60); GFR (African American) 58 ML/MIN (>60); Globulin 2.9 g/dL (1.3-3.2); Glucose 75 mg/dl (74-100); HDL Cholesterol 44 mg/dl (40-60); Potassium 4.2 mmoL/L (3.5-5.1); Sodium 140 mmol/L (136-145); Total Protein,Serum 6.8 g/dl (6.3-8.2); Triglycerides 172 mg/dl (30-150)
[2024-11-10 16:11] LABS: Thyroid Stimulating Hormone 5.88 uIU/mL (0.465-4.68)
--- OUTSIDE RECORDS SUMMARY | 2024-11-11 12:50 | XMS_ITS | Clinical Summary ---
[facility] Organization [facility] Address [address] [place] [address] Care Team Providers Care Data Power Consultant Name Role Phone Homero Mims MD Primary Care Provider [phone] Allergies No known active allergies Medications AMLODIPINE-EDI RVASTATIN PO Active BISOPROLOL FUMARATE PO Active levothyroxine (SYNTHROID, LEVOTHROID) 88 MCG tablet Active probiotic (CULTURELLE) capsule capsule Take 1 capsule by mouth Daily. Active LORazepam (ATIVAN) 1 MG tablet Take 1 tablet by mouth 2 (Two) Times a Day. Active vitamin B-12 (cyanocobalami n) 100 MCG tablet Take 1 tablet by mouth Daily. Active estradiol (ESTRACE) 0.1 MG/GM vaginal cream Insert 1 applicatorful by vaginal route as directed. 4 Active multivitamin tablet tablet Take by mouth Daily. Active diphenhydrAMIN E-acetaminophe n (TYLENOL PM) 25-500 MG tablet per tablet Take 1 tablet by mouth At Night As Needed for Sleep. Active PARoxetine (PAXIL) 20 MG tablet Active pravastatin (PRAVACHOL) 20 MG tablet Take 1 tablet by mouth Daily. Active Vitamin D, Cholecalcifero l, (CHOLECALCIFER OL) 10 MCG (400 UNIT) tablet Take 1 tablet by mouth Daily. Active triamcinolone (KENALOG) 0.1 % ointment Used twice daily for 2 weeks and then taper to once daily for 2 weeks. If itching remains well controlled using every other day as needed. 80 g 6 5 Active nystatin-triam cinolone (MYCOLOG) 161380-6.1 UNIT/GM-% ointment Apply 1 Application topically to the appropriate area as directed 2 (Two) Times a Day. 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 Colonoscopy DEXA [T-score] Frax [hip/any] Lipids [LDL / HDL / TG] Vitamin D TSH Enter the month test was performed. If month not known, enter X' Black numbers = normal results Red numbers = abnormal results Black X = patient reported normal Red X - patient reported abnormal Referred by: Ruby Conklin (classmate) Profession: Other info: Pulmonary hypertension 04/18/2024 Lichen sclerosus 07/27/2022 Essential hypertension 04/13/2022 Renal insufficiency 04/13/2022 Family History Medical History Relation Name Comments Breast cancer Neg Hx Ovarian cancer Neg Hx Social History Tobacco Use Types Packs/Day Years Used Date Smoking Tobacco: Never Smokeless Tobacco: Never Tobacco Cessation:Counseling Given: Not Answered Alcohol Use Standard Drinks/Week Comments Never 0 (1 standard drink = 0.6 oz pur e alcohol) Comments No Sex and Gender Information Value Date Recorded Sex Assigned at Not on file Legal Sex Female 10:15 AM EDT Gender Identity Not on file Sexual Orientation Not on file Last Filed Vital Signs Vital Sign Reading Time Taken Comments Blood Pressure 128/82 04/18/2024 11:17 AM EST Pulse - - Temperature - - Respiratory Rate 14 06/17/2024 1:07 PM EDT Oxygen Saturation - - Inhaled Oxygen Concentration - - Weight 73.9 kg (163 lb) 06/17/2024 1:07 PM EDT Height - - Body Mass Index - - Plan of Treatment Upcoming Encounters Date Type Department Care Team (Late st Contact Info) Description 11/21/2024 1:00 PM EDT Appointment [address] [place] [address] Health Maintenance Due Date Last Done Comments DXA SCAN 1942 TDAP/TD VACCINES (1 - Tdap) 1961 Pneumococcal Vaccine 50+ (1 of 1 - PCV) 1992 ZOSTER VACCINE (1 of 2) 1992 RSV Vaccine - Adults (1 - 1- dose 75+ series) 2017 COVID-19 Vaccine (3 - 2023- season) 12/09/202310/2020, 12/23/2020 ANNUAL WELLNESS VISIT 04/18/2024 INFLUENZA VACCINE 01/07/2025 Insurance [address] [employer] PPO Care Teams Data Power Consultant Relationship Specialty Start Date End Date Homero Mims MD [address] [facility] [address] [place] [address] PCP - General Internal Medicine 07/30/17
--- OUTSIDE RECORDS SUMMARY | 2024-11-11 12:50 | XMS_ITS | Referral Summary ---
Author Organization [facility] ([place], [place], [place], [place]) Address [address] [place] [address] Care Team Providers Care Cloth Laminating Supervisor Name Role Phone Homero Mims MD Primary Care Provider Allergies No known active allergies Medications amLODIPine (NORVASC) 5 MG tabletIndicatio ns:hypertension Take 5 mg by mouth daily. Active bisoprolol (ZEBETA) 5 MG tablet Take 5 mg by mouth daily. Active imipramine (TOFRANIL) 25 MG tablet Take 25 mg by mouth nightly. Active levothyroxine (SYNTHROID, LEVOTHROID) 50 MCG tablet Take 50 mcg by mouth Every morning on an empty stomach. Active PARoxetine (PAXIL) 20 MG tablet Take 20 mg by mouth every morning. Active multivitamin capsule Take 1 capsule by mouth daily. Active lactobacillus rhamnosus, GG, (CULTURELLE) 10 billion cell capsule Take 1 capsule by mouth daily. Active diphenhydrAMINE -acetaminophen (TYLENOL PM) 25-500 mg Tab Take 1 tablet by mouth every night as needed. Active aspirin 81 MG chewable tablet Take 81 mg by mouth daily. Active Social History Tobacco Use Types Packs/Day Years Used Date Smoking Tobacco: Never Assessed Family and Community Support Answer Piyush e Recorded Help with Day to Day Activities Not on file 04/27/2023 Feeling Lonely or Isolated Not on file 04/27 Educational Attainment Answer Date Dustin rded Speak language other than Thai at home Not on file 04/27/2023 Want help with school or training Not on file 04/27/2023 Substance Use Answer Date Recorded Used prescription meds for non-medical reasons N ot on file 04/27/2023 Used illegal drugs past 12 months Not on file 04/27/2023 Comments Unknown Sex and Gender Information Value Date Recorded Sex Assigned at Not on file Legal Sex Female 1:24 PM CDT Gender Identity Not on file Sexual Orientation Not on file Last Filed Vital Signs Vital Sign Reading Time Taken Comments Blood Pressure 130/74 03/16/2022 2:41 PM EST Pulse 68 03/16/2022 2:41 PM EST Temperature 36.5 C (97.7 F) 02/14/2022 9:06 AM EST Respiratory Rate - - Oxygen Saturation 96% 02/14/2022 1:05 PM EST Inhaled Oxygen Concentration - - Weight 74.8 kg (165 lb) 03/16/2022 2:41 PM EST Height 157.5 cm (5' 2 ) 03/16/2022 2:41 PM EST Body Mass Index 30.18 03/16/2022 2:41 PM EST Plan of Treatment Not on file Insurance 1948 [place] [place] [address] [employer] MEDICARE PPO Advance Directives For more information, please contact: [phone] * Full Code (Latest Code Status on File) Date Activated Date Inactivated Comments 02/14/2022 8:07 AM 03/18/2022 6:51 AM Care Teams Cloth Laminating Supervisor Relationship Specialty Start Date End Date Homero Mims MD [address] [place] [address] [place] [address] PCP - General General Internal Medicine 02/14/22
--- OUTSIDE RECORDS SUMMARY | 2024-11-11 12:50 | XMS_ITS | Clinical Summary ---
Author Organization [employer] ([place], [place], [place], [place]) Address [address] [place] [address] Care Team Providers Care Beater Boss Name Role Phone Homero Mims MD Primary Care Provider [phone] Allergies No known active allergies Medications amLODIPine [...] Date Dustin rded Speak language other than Welsh at home Not on file 04/27/2023 Want [...] 03/16/2022 2:41 PM EST Plan of Treatment Health Maintenance Due Date Last Done Comments DXA SCAN 1942 Depression Screening (12+) 1954 Tobacco Cessation Counseling and Screening (12+) 1954 DTAP/TDAP/TD VACCINES (1 - Tdap) 1961 Pneumococcal 50+ years (1 of 1 - PCV) 1992 Shingles Vaccine (Zoster) (1 of 2) 1992 Respiratory Syncytial Virus (RSV) Adult or (1 - 1-dose 75+ series) 2017 Medicare Initial AWV [id number] 04/10/2019 COVID-19 VACCINE (3 - season) 12/09/202310/2020, 12/23/2020 Falls Risk Screening 04/09/2024 Influenza Vaccine (#1) 2024 01/31/2022, [address] [place] [id number] [employer] MEDICARE PPO Advance Directives For more information, please contact: [phone] * Full Code (Latest Code Status on File) Date Activated Date Inactivated Comments 02/14/2022 8:07 AM 03/18/2022 6:51 AM Care Teams Beater Boss Relationship Specialty Start Date End Date Homero Mims MD [address] [place] [address] [place] [address] PCP - General General Internal Medicine 02/14/22
--- OUTSIDE RECORDS SUMMARY | 2024-11-11 12:50 | XMS_ITS | Clinical Summary ---
Author Organization Healthcare Address [address] [place] [address] Care Team Providers Care Disability Examiner Name Role Phone Homero Mims MD Primary Care Provider [phone] Allergies No known active allergies Medications amLODIPine (Norvasc) 5 MG tablet 01/04/2022 Active bisoprolol (Zebeta) 5 MG tablet 01/04/2022 Active LORazepam (Ativan) 1 MG tablet 03/20/2022 Active Multiple Vitamin (multivitamin) capsule Take 1 capsule by mouth 1 (one) time each day. Active omeprazole (PriLOSEC) [address] capsule 03/24/2022 Activ e PARoxetine (Paxil) 40 MG tablet 04/11/2022 Active Lactobacillus Rhamnosus, GG, ( Probiotic Digestive Care) capsule Take 1 capsule by mouth 1 (one) time each day. Active diphenhydrAMINE -acetaminophen (Tylenol PM) 25-500 MG per tablet Take 1 tablet by mouth at night if needed for sleep. Active cyanocobalamin (Vitamin B-12) 100 MCG tablet Take 1 tablet (100 mcg) by mouth 1 (one) time each day. Active levothyroxine (Synthroid, Levoxyl) 75 MCG tablet Take 1 tablet (75 mcg) by mouth 1 (one) time each day. 05/19/2022 Active Active Problems Problem Noted Date Diagnosed Date Renal insufficiency 04/13/2022 Essential hypertension 04/13/2022 Immunizations Immunization Administration Dates Next Due Influenza, high-dose, quadrivalent 01/31/2022, Influenza, injectable, quadrivalent, preservativ e free 01/29/2018 Family History Medical History Relation Name Comments No Known Problems Father No Known Problems Mother Relation Name Status Comments Father Mother Social History Tobacco Use Types Packs/Day Years Used Date Smoking Tobacco: Never Passive Smoke Exposure: Never Smokeless Tobacco: Never Tobacco Cessation:Counseling Given: Not Answered Alcohol Use Standard Drinks/Week Comments Never 0 (1 standard drink = 0.6 oz pur e alcohol) Comments Unknown Sex and Gender Information Value Date Recorded Sex Assigned at Not on file Legal Sex Female 7:42 PM EDT Gender Identity Not on file Sexual Orientation Not on file Last Filed Vital Signs Vital Sign Reading Time Taken Comments Blood Pressure 142/63 07/09/2023 1:30 PM EDT Pulse 52 07/09/2023 1:30 PM EDT Temperature - - Respiratory Rate 16 07/09/2023 1:30 PM EDT Oxygen Saturation 96% 07/09/2023 1:30 PM EDT Inhaled Oxygen Concentration - - Weight 73.5 kg (162 lb) 07/09/2023 1:30 PM EDT Height 156.2 cm (5' 1.5 ) 04/13/2022 3:16 PM EST Body Mass Index 30.11 04/13/2022 3:16 PM EST Plan of Treatment Health Maintenance Due Date Last Done Comments [facility]-Bone Density Scan 1942 [facility]-Depression Screening 1942 [facility]Medicare Annual Wellness (AWV) 1942 [facility]-/Child/Adol SDOH Screenings 1942 [facility]- SDOH Screenings 1960 [facility]-Adult SDOH Screenings 1960 [facility]-DTaP,Tdap,and Td Vaccine s (1 - Tdap) 1961 [facility]-Pneumococcal Vaccine: 50 + Years (1 of 1 - PCV) 1992 [facility]-Zoster Vaccines (1 of 2) 1992 [facility]-RSV Vaccine: 60+ Years o r (1 - 1-dose 75+ series) 2017 [id number] Vaccine (3 - Pfizer risk series) 02/10/2021 01/13/2021, 12/23/2020 [facility]-Influenza Vaccine (#1) 12/08/202401/31, 01/12/2020, 01/29/2018 [facility]-Obesity Intervention Completed 024, 07/13/2022, 04/13/2022 HPV Vaccines Aged Out No longer eligi ble based on patient's age to complete this topic [facility]-HIB Vaccines Aged Out No longer e ligible based on patient's age to complete this topic [facility]-Hepatitis A Vaccines Aged Out No longer eligible based on patient's age to complete this topic [facility]-IPV Vaccines Aged Out No longer e ligible based on patient's age to complete this topic [facility]-Rotavirus Vaccines Aged Out No lo nger eligible based on patient's age to complete this topic Insurance [facility] MEDIC[facility] Care Teams Disability Examiner Relationship Specialty Start Date End Date Homero Mims MD [address] [address] [place] [address] PCP - General 03/16/22
--- OUTSIDE RECORDS SUMMARY | 2024-11-11 12:50 | XMS_ITS | Encounter Summary ---
Author Organization [employer] ([place], [place], [place], [place]) Address [address] [place] [address] Care Team Providers Care Forensic Social Worker Name Role Phone Homero Mims MD Primary Care Provider [phone] Encounter Details Date Type Department Care Team (Late st Contact Info) Description 02/12/2022 Outside Orders [facility] Central Scheduling [address] [place] [address] Ky Haney MD [address] [facility] [address] [place] [address] Chest pain, unspecified type (Primary Dx) Social History Tobacco Use Types Packs/Day Years Used Date Smoking Tobacco: Never Assessed Comments Unknown Sex and Gender Information Value Date Recorded Sex Assigned at Not on file Legal Sex Female 1:24 PM CDT Gender Identity Not on file Sexual Orientation Not on file COVID-19 Exposure Response Date Recorded In the last 10 days, have yo u been in contact with someone who was confirmed or suspected to have Coronavirus/COVID-19? No / Unsure 02/14/2022 9:10 AM EST documented as of this encounter Plan of Treatment Not on file documented as of this encounter Visit Diagnoses Diagnosis Chest pain, unspecified type- Primary documented in this encounter Care Teams Forensic Social Worker Relationship Specialty Start Date End Date Homero Mims MD [address] [place] [address] PCP - General General Internal Medicine 02/14/22 documented as of this encounter
== END 2024-11-10 23:59 | disposition home or self-care (01) ==
LOC: LAB.DROPOF 11-11 12:48
PROVIDERS: PCP Internal Medicine; Visit Provider Internal Medicine
DX: I12.9 Hypertensive chronic kidney disease with stage 1 through stage 4 chronic kidney disease, or unspecified chronic kidney disease (principal); N18.9 Chronic kidney disease, unspecified; E03.9 Hypothyroidism, unspecified; E78.49 Other hyperlipidemia
CPT/HCPCS: 80053; 80061; 84443